=== PATIENT | female | born 1980 | race Caucasian/White ===

== ENCOUNTER 2017-04-21 21:44 | Emergency (ER) | payer OTHER ==
[2017-04-21 21:53] VITALS: O2SAT 99
[2017-04-21] MEDS ORDERED: Oxycodone/Acetaminophen 5/325 mg Tab PO ONE (22:32)
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
[2017-04-21] MEDS ORDERED: Oxycodone/Acetaminophen 5/325 mg Tab ONE (22:38)
[2017-04-21] MEDS ORDERED: Fluorescein 1 mg Ophthalmic Strip ONE (22:40)
--- NOTE | 2017-04-21 23:25 | CT ---
EXAM: CT Head Without Intravenous Contrast EXAM DATE/TIME: 04/21/2017 10:31 PM CLINICAL HISTORY: 37 years old, female; Pain and injury or trauma; Fall; Initial encounter; Concussion / head injury; Consciousness not specified; Headache; Headache not specified; Injury date: 04-17-2017; Additional info: Headaches, vomiting S/P head injury TECHNIQUE: Axial computed tomography images of the head/brain without intravenous contrast. All CT scans at this facility use one or more dose reduction techniques, viz.: automated exposure control; ma/kV adjustment per patient size (including targeted exams where dose is matched to indication; i.e. head); or iterative reconstruction technique. Coronal and sagittal reformatted images were created and reviewed. COMPARISON: No relevant prior studies available. FINDINGS: There is subcutaneous soft tissue swelling/subcutaneous hematoma in the right frontal region. No intracranial hemorrhage. No extra axial collections. No intracranial edema. No fluid in the sinuses or mastoid air cells. No depressed fractures. IMPRESSION: No acute intracranial injury.
--- NOTE | 2017-04-21 23:40 | CT ---
EXAM: CT Maxillofacial Without Intravenous Contrast EXAM DATE/TIME: 04/21/2017 10:32 PM CLINICAL HISTORY: 37 years old, female; Injury or trauma; Fall; Initial encounter; Blunt trauma (contusions or hematomas); Forehead and orbit/periorbital; Bilateral; Additional info: Pain/pressure/bruising S/P fall x 4 days TECHNIQUE: Axial computed tomography images of the face without intravenous contrast. All CT scans at this facility use one or more dose reduction techniques, viz.: automated exposure control; ma/kV adjustment per patient size (including targeted exams where dose is matched to indication; i.e. head); or iterative reconstruction technique. Coronal and sagittal reformatted images were created and reviewed. COMPARISON: No relevant prior studies available. FINDINGS: There is extensive subcutaneous soft tissue swelling including the right mandibular region, bilateral maxillary regions, and overlying the right zygomatic arch. There is also subcutaneous soft tissue swelling/subcutaneous hematoma in the right frontal region. No significant fluid in the sinuses or mastoid air cells. No fractures. IMPRESSION: No fractures.
[2017-04-21 23:59] VITALS: BP 140/88; PULSE 96; RESP 17; TEMP 98.1
== END 2017-04-22 00:31 | disposition home or self-care (01) ==
LOC: H.ER 21:44
DX: S09.90XA Unspecified injury of head, initial encounter (principal); S00.03XA Contusion of scalp, initial encounter; H11.33 Conjunctival hemorrhage, bilateral; S00.83XA Contusion of other part of head, initial encounter; W19.XXXA Unspecified fall, initial encounter; Y92.480 Sidewalk as the place of occurrence of the external cause

== ENCOUNTER 2017-05-17 15:01 | Emergency (ER) | payer OTHER ==
[2017-05-17 15:40] VITALS: BP 126/89; PULSE 82; RESP 16; TEMP 98.5; O2SAT 100
--- NOTE | 2017-05-17 15:58 | ED PDOC ---
HPI: General Adult Time Seen by Provider: 05/17/17 15:45 Chief Complaint (Nursing): Breast Problem Chief Complaint (Provider): Right rib pain History Per: Patient History/Exam Limitations: no limitations Additional Complaint(s): 27 y/o female presents to the emergency department for right rib pain and bilateral breast pain for several days. Patient states that she was evaluated 2 months ago for a slip and fall and was diagnosed with a right 9th and 10th rib fractures. She's had persistent pain since then unrelieved by Tylenol and Advil. Patient states she was prescribed Naprosyn but this causes her stomach upset. In addition she reports bilateral breast pain and cystic changes ongoing for several months. Patient was seen by primary doctor and sent for mammogram yesterday and is currently awaiting the results. She denies any fever or chills. No acute shortness of breath or dyspnea on exertion. PMD: [facility] Past Medical History Reviewed: Historical Data, Nursing Documentation, Vital Signs Vital Signs: Last Vital Signs Temp 98.5 F 05/17/17 15:36 Pulse 82 05/17/17 15:36 Resp 16 05/17/17 15:36 BP 126/89 05/17/17 15:36 Pulse Ox 100 05/17/17 17:33 - Medical History PMH: No Chronic Diseases - Family History Family History: States: No Known Family Hx - Living Arrangements Living Arrangements: With Family - Social History Current smoker - smoking cessation education provided: No Ex-Smoker (has not smoked in the last 12 months): Yes (Stopped after injury to the rib because pain was worse while smoking) Alcohol: None Drugs: Denies - Home Medications Home Medications: Ambulatory Orders Medication Instructions Recorded Gentamicin Sulfate [Garamycin 0.3% 2 drop TOP QID #1 bottle 12/13/15 Opt] Naproxen [Naprosyn] 500 mg PO Q12 PRN #20 tablet 04/22/17 - Allergies Allergies/Adverse Reactions: Allergies Allergy/AdvReac Type Severity Reaction Status Date / Time No Known Allergies Allergy Verified 05/17/17 15:36 Review of Systems ROS Statement: Except As Marked, All Systems Reviewed And Found Negative (As per HPI, otherwise negative) Musculoskeletal: Positive for: Other (right rib pain, bilateral breast pain) Physical Exam - Reviewed Nursing Documentation Reviewed: Yes Vital Signs Reviewed: Yes - Physical Exam Appears: Positive for: Well, Non-toxic, No Acute Distress Skin: Positive for: Normal Color, Warm, Dry. Negative for: Rash Cardiovascular/Chest: Positive for: Regular Rate, Rhythm, Other (Tenderness to right lateral chest wall with slight bony prominence overlying the region of 9th and 10th ribs, no ecchymosis or soft tissue swelling). Negative for: Murmur Respiratory: Positive for: Normal Breath Sounds. Negative for: Accessory Muscle Use, Respiratory Distress Gastrointestinal/Abdominal: Positive for: Soft. Negative for: Tenderness, Distended, Guarding, Rebound Back: Negative for: L CVA Tenderness, R CVA Tenderness Neurologic/Psych: Positive for: Alert, Oriented (x3) - Laboratory Results Urine POC: Negative - ECG O2 Sat by Pulse Oximetry: 100 (RA) Pulse Ox Interpretation: Normal - Other Rad CXR with right rib series X-Ray Interpretation: no acute fx, healing 9th and 10th rib fractures Medical Decision Making Medical Decision Making: Time: 1555 Initial impression: 37 year old female with rib pain and breast pain Patient had mammogram yesterday ordered by PMD, she is awaiting follow up appt with PMD for results. Initial plan: --Urine preg --Right rib and Chest x-ray --Cyclobenzaprine 10 mg PO --Toradol 30 mg IM Time: 1724 --Patient eloped from ED after meds given and x-ray was completed. Patient left before x-ray results were discussed with her. Scribe Attestation: Documented by Katie Torres, acting as a scribe for Melissa Amador PA-C Provider Scribe Attestation: All medical record entries made by the Scribe were at my direction and personally dictated by me. I have reviewed the chart and agree that the record accurately reflects my personal performance of the history, physical exam, medical decision making, and the department course for this patient. I have also personally directed, reviewed, and agree with the discharge instructions and disposition. Disposition - Clinical Impression Clinical Impression: Pain of breast, Rib pain - Patient ED Disposition Is Patient to be Admitted: No - Disposition Disposition: Eloped Disposition Time: 17:25 Condition: UNKNOWN Forms: [employer] (Bulgarian)
--- NOTE | 2017-05-17 16:58 | RAD ---
PROCEDURE: Radiographs of the Chest and Right Ribs. HISTORY: rib pain, fracture from 4 months ago COMPARISON: None available. TECHNIQUE: Frontal radiograph of the chest and multiple oblique radiographs of the right ribs were obtained. FINDINGS: RIGHT RIBS: Healing fractures of the posterolateral 9th and 10th ribs with surrounding callus formation. No acute fracture evident. LUNGS: Clear. PLEURA: No pneumothorax or pleural fluid. CARDIOVASCULAR: Normal sized heart. No pulmonary vascular congestion. OTHER FINDINGS: None. IMPRESSION: No acute rib fracture. Healing fractures of the posterolateral 9th and 10th ribs. .
== END 2017-05-17 18:17 | disposition left against medical advice (07) ==
LOC: H.ER 15:01
DX: N64.4 Mastodynia (principal); R07.82 Intercostal pain
CPT/HCPCS: 71101; 81025; 96372; 99282; J1885

== ENCOUNTER 2017-11-30 23:35 | Emergency (ER) | payer SELFPAY ==
[2017-11-30 23:57] VITALS: BP 110/70; PULSE 81; RESP 18; TEMP 97.6; O2SAT 97
[2017-12-01] MEDS ORDERED: Sodium Chloride 0.9% 1,000 ML IV STA (01:35)
--- NOTE | 2017-12-01 01:38 | ED PDOC ---
Lower Extremity Pain/Injury Time Seen by Provider: 12/01/17 00:45 Chief Complaint (Nursing): Abnormal Skin Integrity Chief Complaint (Provider): leg pain History Per: Patient History/Exam Limitations: no limitations Onset/Duration Of Symptoms: Days (2 weeks) Current Symptoms Are (Timing): Still Present Additional Complaint(s): 37 y/o female presents for evaluation of bilateral leg pain x 2 weeks. Patient states pain started from knee down on both legs at same time, then soon after noted a patchy non-pruritic rash to develop on both lower legs with some bruising. Patient states since then she has developed pain from both hips down , also to bilateral forearms/hands. Patient vomited once today. Denies fever, chest pain, shortness of breath, palpitations, changes in bowel movements, urinary symptoms, known allergen. Past Medical History Reviewed: Historical Data, Nursing Documentation, Vital Signs Vital Signs: Last Vital Signs Temp 97.6 F 11/30/17 23:54 Pulse 81 11/30/17 23:54 Resp 18 11/30/17 23:54 BP 110/70 11/30/17 23:54 Pulse Ox 97 11/30/17 23:54 - Medical History PMH: No Chronic Diseases - Surgical History Other surgeries: tubal ligation - Family History Family History: States: Unknown Family Hx - Immunization History Hx Tetanus Toxoid Vaccination: No Hx Influenza Vaccination: No Hx Pneumococcal Vaccination: No - Home Medications Home Medications: Ambulatory Orders Medication Instructions Recorded Gentamicin Sulfate [Garamycin 0.3% 2 drop TOP QID #1 bottle 12/13/15 Opt] Naproxen [Naprosyn] 500 mg PO Q12 PRN #20 tablet 04/22/17 Naproxen [Naprosyn] 500 mg PO Q12 PRN #20 tablet 12/01/17 - Allergies Allergies/Adverse Reactions: Allergies Allergy/AdvReac Type Severity Reaction Status Date / Time No Known Allergies Allergy Verified 07/19/17 17:04 Review of Systems ROS Statement: Except As Marked, All Systems Reviewed And Found Negative Musculoskeletal: Positive for: Arm Pain, Leg Pain Physical Exam - Reviewed Nursing Documentation Reviewed: Yes Vital Signs Reviewed: Yes - Physical Exam Appears: Positive for: Well, Non-toxic, No Acute Distress Head Exam: Positive for: ATRAUMATIC, NORMAL INSPECTION, NORMOCEPHALIC Skin: Positive for: Rash (scattered macular erythematous rash to distal bilateral lower extremities; no lesions, petechiae) Eye Exam: Positive for: Normal appearance ENT: Positive for: Normal ENT Inspection Cardiovascular/Chest: Positive for: Regular Rate, Rhythm Respiratory: Positive for: Normal Breath Sounds Gastrointestinal/Abdominal: Positive for: Normal Exam Back: Positive for: Normal Inspection Extremity: Positive for: Normal ROM (pain to bilateral knees with flexion). Negative for: Calf Tenderness Neurologic/Psych: Positive for: Alert, Oriented - Laboratory Results Result Diagrams: 12/01/17 02:22 12/01/17 02:22 - ECG O2 Sat by Pulse Oximetry: 97 - Progress ED Course And Treament: labs, IV fluids, IV toradol, udip Patient educated on findings, discharged with instructions to follow up PMD/ rheumatology Rx Naproxen provided Return precautions given Disposition - Clinical Impression Clinical Impression: Musculoskeletal pain, Rash - Patient ED Disposition Is Patient to be Admitted: No Counseled Patient/Family Regarding: Studies Performed, Diagnosis, Need For Followup, Rx Given - Disposition Referrals: [facility] [Outside] Disposition: Routine/Home Disposition Time: 03:42 Condition: STABLE Prescriptions: Naproxen [Naprosyn] 500 mg PO Q12 PRN #20 tablet PRN Reason: Pain, Moderate (4-7) Instructions: Skin Rash, Muscle and Bone Pain (DC) Forms: [employer] (Mongolian)
[2017-12-01 02:25] LABS: BASO # 0.1 K/uL (0.0-0.2); BASO % 0.7 % (0.0-2.0); EOS # 0.1 K/uL (0.0-0.7); EOS % 1.1 % (0.0-4.0); HEMOGLOBIN 11.2 g/dL (12.0-16.0); LYMPH # 2.5 K/uL (1.0-4.3); LYMPH % 18.5 % (20.0-40.0); MEAN CORPUSCULAR HEMOGLOBIN 26.3 pg (27.0-31.0); MEAN CORPUSCULAR HGB CONC 32.5 g/dL (33.0-37.0); MEAN PLATELET VOLUME 8.6 fl (7.2-11.7); MONO # 0.7 K/uL (0.0-0.8); MONO % 5.1 % (0.0-10.0); NEUT # 9.9 K/uL (1.8-7.0); NEUT % 74.6 % (50.0-75.0); RBC 4.25 Mil/uL (3.80-5.20); RED CELL DISTRIBUTION WIDTH 16.7 % (11.5-14.5); WHITE BLOOD COUNT 13.3 K/uL (4.8-10.8)
[2017-12-01 02:36] LABS: ALB/GLOB RATIO 1.4 (1.0-2.1); ALBUMIN 4.2 g/dL (3.5-5.0); ALT/SGPT 25 U/L (9-52); AST/SGOT 35 U/L (14-36); BLOOD UREA NITROGEN 15 mg/dl (7-17); CALCIUM 8.8 mg/dL (8.4-10.2); GFR AFRICAN-AMERICAN > 60; GFR NON-AFRICAN AMERICAN > 60; LIPASE 231 U/L (23-300)
== END 2017-12-01 04:09 | disposition home or self-care (01) ==
LOC: H.ER 23:35
DX: M79.1 Myalgia (principal); R21 Rash and other nonspecific skin eruption
CPT/HCPCS: 80053; 81025; 82550; 83690; 85025; 85651; 99283; J7030